=== PATIENT | female | born 1950 | race Caucasian/White ===

== ENCOUNTER → 2020-04-03 14:19 | Outpatient (REF) | payer MEDICARE, SELFPAY | LOC: ANHLAB 14:19 | PROVIDERS: Visit Provider Nurse Practitioner | DX: D49.2 Neoplasm of unspecified behavior of bone, soft tissue, and skin (principal) | CPT/HCPCS: 88305 ==

== ENCOUNTER → 2020-05-17 13:10 | Outpatient (REF) | payer MEDICARE, SELFPAY | LOC: ANHLAB 13:10 | PROVIDERS: Visit Provider Nurse Practitioner | DX: L57.0 Actinic keratosis (principal) | CPT/HCPCS: 88305 ==

== ENCOUNTER 2021-10-31 12:26 | Outpatient (CLI) | payer MEDICARE, SELFPAY ==
--- NOTE | ~2021-10-31 | XR_ITS ---
XR hand BI arthritis min 3V DATE: 10/31/2021 13:19 INDICATION: Osteoarthritis TECHNIQUE: 4 views of each hand COMPARISON: None FINDINGS: No fracture or dislocation, periosteal reaction or bone destruction, erosive change or ely drocalcinosis. IMPRESSION: No significant abnormality Reviewed, dictated and finalized at location B. ISION DEVICES INSPECTOR/TESTER IMPRESSION: No significant abnormality
--- NOTE | ~2021-10-31 | XR_ITS ---
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 AP and lateral views of each hip. COMPARISON: None FINDINGS: Osteopenia. No pelvic fracture or bone destruction. The pubic symphysis and sacroiliac join ts are intact. No fracture or dislocation, avascular necrosis or bone destruction of either hip is ev ident. IMPRESSION: Osteopenia Left-sided battery pack with leads extending toward thoracic spinal canal Postoperative change from surgical fusion of lumbar spine Moderately severe degenerative disc disease at L4-5, L5-S1 Reviewed, dictated and finalized at location B. [employer] C[employer]TER
--- NOTE | ~2021-10-31 | XR_ITS ---
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 Battery pack o verlying left sacroiliac area with leads extending up into the thoracic spinal canal. There is 1.6 cm grade 2 spondylolisthesis at L4-L5. There is severe degenerative disc disease at L1-2, moderate to moderately severe degenerative disc di sease at L4-5 and L5-S1. Extensive abdominal aortic calcification without aneurysm. Status post cholecystectomy. IMPRESSION: Posterior spinal fusion from L2 to L4 Severe degenerative disease at L1-2. Moderate to moderately severe degenerative disc disease at L4-5 and L5-S1 Grade 2 anterolisthesis at L4-5 Reviewed, dictated and finalized at location B. Y ROLLER
--- NOTE | ~2021-10-31 | XR_ITS ---
XR foot LT standing 2V DATE: 10/31/2021 13:19 INDICATION: Osteoarthritis TECHNIQUE: AP and lateral views COMPARISON: None FINDINGS: There is very prominent plantar and posterior calcaneal enthesopathy without erosive change or periostitis. There is enthesopathy of the base of the fifth metatarsal bone. There is mild osteoarthritis at the first metatarsophalangeal joint. No fracture, dislocation, periosteal reaction or bone destruction is detected. IMPRESSION: Prominent plantar and posterior calcaneal enthesopathy Mild osteoarthritic change Reviewed, dictated and finalized at location B. [employer]
--- NOTE | ~2021-10-31 | XR_ITS ---
XR foot RT standing 2V DATE: 10/31/2021 13:19 INDICATION: Right foot pain TECHNIQUE: AP and lateral views COMPARISON: None FINDINGS: Prominent plantar and posterior calcaneal enthesopathy. There is calcification in the dista l Achilles tendon lower leg and foot. There is posterior tibial artery and first and second metatarsa l artery calcification calcification as well as some digital artery calcifications, suggesting diabet es. There is moderate osteoarthritic change at the first metatarsophalangeal joint. No fracture or dislocation, periosteal reaction or bone destruction. IMPRESSION: Prominent plantar and posterior calcaneal enthesopathy Prominent Achilles tendon calcifications Moderate osteoarthritis at first metatarsophalangeal joint Extensive arterial calcifications including metatarsal and digital arteries, suggesting diabetes Reviewed, dictated and finalized at location B. NFIELD REDEVELOPMENT SITE MANAGER IMPRESSION: Prominent plantar and posterior calcaneal enthesopathy Prominent Achilles tendon calcifications Moderate osteoarthritis at first metatarsophalangeal joint Extensive arterial calcifications including metatarsal and digital arteries, de la cruz ggesting diabetes
[2021-10-31 13:43] LABS: Hematocrit 36.9 % (37.0-47.0); Hemoglobin 12.6 g/dL (12.0-15.0); Mean Corpuscular HGB Conc 34.1 g/dl (32-36); Mean Corpuscular Volume 90.9 fl (80-100); Mean Platelet Volume 11.3 fl (7.4-10.4); Platelet Count Result 254 k/mm3 (150-375); Red Blood Count 4.06 M/mm3 (4.2-5.4); Red Cell Distribution Width 13.5 % (11.5-14.5); White Blood Count 11.2 K/mm3 (4.5-10.0)
[2021-10-31 14:04] LABS: Rheumatoid Factor < 8.6 IU/ML (<12)
[2021-10-31 14:05] LABS: Alanine Aminotransferase 21 U/L (4-35); Albumin Level 4.6 g/dL (3.5-5.1); Alkaline Phosphatase 29 U/L (38-126); Anion Gap 9 mmol/L (8-16); Aspartate Amino Transferase 27 U/L (14-36); Bilirubin,Total 0.5 mg/dL (0.2-1.3); Blood Urea Nitrogen 24 mg/dL (7-17); CRP 0.5 mg/dL (<1.0); Calcium 9.8 mg/dL (8.4-10.2); Carbon Dioxide 25 mmol/L (22-30); Chloride 104 mmol/L (98-107); Estimated Glomerular Filt Rate > 60; Glucose 106 mg/dL (65-110); Potassium 4.7 mmol/L (3.4-5.0); Sodium 138 mmol/L (137-145); Uric Acid 5.9 mg/dL (2.5-7.5)
[2021-10-31 14:50] LABS: Erythrocyte Sedimentation Rate 30 mm/hr (0-20)
[2021-11-03 20:37] LABS: SM Antibody <1.0; SM/RNP Antibody <1.0; SS-A <1.0; SS-B <1.0
[2021-11-05 14:41] LABS: Anti Cyclic Citrullinated Pept <16 Units (<20)
== END 2021-10-31 12:27 | disposition home or self-care (01) ==
PROVIDERS: Visit Provider Internal Medicine
DX: M47.816 Spondylosis without myelopathy or radiculopathy, lumbar region (principal); D49.2 Neoplasm of unspecified behavior of bone, soft tissue, and skin; M19.90 Unspecified osteoarthritis, unspecified site; N81.9 Female genital prolapse, unspecified; M06.9 Rheumatoid arthritis, unspecified; M10.9 Gout, unspecified; M77.32 Calcaneal spur, left foot; M77.31 Calcaneal spur, right foot; M65.871 Other synovitis and tenosynovitis, right ankle and foot; M19.072 Primary osteoarthritis, left ankle and foot; M19.071 Primary osteoarthritis, right ankle and foot; I70.201 Unspecified atherosclerosis of native arteries of extremities, right leg; M85.89 Other specified disorders of bone density and structure, multiple sites; Z98.1 Arthrodesis status; M51.36 Other intervertebral disc degeneration, lumbar region; M43.16 Spondylolisthesis, lumbar region
CPT/HCPCS: 36415; 72110; 73130; 73521; 73620; 80053; 84550; 85027; 85652; 86038; 86140; 86200; 86225; 86235; 86430

== ENCOUNTER 2022-09-08 20:48 | Emergency (ER) | payer MEDICARE, SELFPAY ==
[2022-09-08 20:55] VITALS: BP 155/85; PULSE 99; RESP 15; TEMP 36.7; O2SAT 95
[2022-09-08 21:50] VITALS: BP 170/90; PULSE 98; RESP 14; O2SAT 98
--- NOTE | 2022-09-08 22:30 | ED.EPISTAXIS ---
HPI - Epistaxis General Chief complaint: Epistaxis Stated complaint: bloody nose off and on all day Time Seen by Provider: 09/08/22 22:08 History of Present Illness HPI Narrative: This is a 71-year-old female with past medical history of diabetes, hypertension, hypothyroidism, presents emergency department with epistaxis. She states over the past day she has had intermittent nosebleeds, the worst lasting approximately 1 hour. She complains of some headache but no lightheadedness or difficulty breathing. Related Data Home Medications Medication Instructions Recorded Confirmed albuterol sulfate 90 mcg/actuation 2 puff inhalation QID PRN 09/09/19 05/12/22 aerosol inhaler Shortness Of Breath diphenhydramine 25 1 tablet PO HS 09/09/19 05/12/22 mg-acetaminophen 500 mg tablet (Tylenol PM Extra Strength) metformin 1,000 mg tablet 1,000 mg PO BID 09/09/19 05/12/22 metoprolol tartrate 50 mg tablet 25 mg PO BID 09/09/19 05/12/22 (Lopressor) multivit with minerals-iron 18 1 tablet PO DAILY 09/09/19 05/12/22 mg-folic ac 400 mcg-vit K 25 mcg tablet (Adults Multivitamin) oxybutynin chloride 5 mg tablet 5 mg PO BID 09/09/19 05/12/22 allopurinol 100 mg tablet 100 mg PO DAILY 04/03/20 05/12/22 aspirin 81 mg tablet 81 mg PO DAILY 04/03/20 05/12/22 atenolol 50 mg tablet 50 mg PO DAILY 04/03/20 05/12/22 ezetimibe 10 mg tablet 5 mg PO DAILY 04/03/20 05/12/22 fluticasone propionate 44 1 inhalation inhalation ONCE 04/03/20 05/12/22 mcg/actuation HFA aerosol inhaler (Flovent HFA) glimepiride 4 mg tablet 4 mg PO BID 04/03/20 05/12/22 levothyroxine 50 mcg tablet 50 mcg PO BID 04/03/20 05/12/22 lisinopril 20 1 tablet PO BID 04/03/20 05/12/22 mg-hydrochlorothiazide 12.5 mg tablet omega-3 1,050 or-but-[id number]-[id number]-fish 2 cap PO BID 04/03/20 05/12/22 oil 1,200 mg capsule Allergies Allergy/AdvReac Type Severity Reaction Status Date / Time nalbuphine [From Nubain] Allergy Unknown Verified 09/08/22 21:50 Review of Systems Review of Systems: CONSTITUTIONAL: Denies fever, chills, or sweats. ENT: Epistaxis denies rhinorrhea, congestion, sore throat, or otalgia. CARDIOVASCULAR: Denies chest pain, palpitations, or edema. RESPIRATORY: Denies cough or dyspnea. GASTROINTESTINAL: Denies abdominal pain, nausea, vomiting, or diarrhea. GENITOURINARY: Denies dysuria or hematuria. NEUROLOGIC: Headache denies numbness, dizziness, or weakness. PSYCHIATRIC: Denies anxiety or depression. [facility] Past Medical History Medical History Bilateral hand pain Carpal tunnel syndrome 1996 Deep vein thrombophlebitis of leg Degenerative joint disease (DJD) of lumbar spine Diabetes Gout Hyperlipidemia Hypertension Tarsal tunnel syndrome Surgical History Surgical History H/O: hysterectomy 06/1989 History of back surgery Aug 2005 History of cholecystectomy April 2008 History of total right knee replacement Hx of cardiac cath April 1993 Social History Social History Smoking status: Former smoker Alcohol intake: current Substance use: never Gender identity (if verbalized by the patient): Female Exam Narrative: GENERAL: Well-developed, well-nourished, and in no acute distress. HEAD: Normocephalic, atraumatic. EYES: PERRLA and EOMI. ENT: No significant bleeding noted, mild irritation and small amount of bleeding noted in the right anterior nares; no rhinorrhea. Mucous membranes moist. Oropharynx without tonsillar hypertrophy exudate or other lesions. No noted posterior pharygeal bleeding CHEST: Clear to auscultation. No respiratory distress. No wheezes rales or rhonchi HEART: Regular rate and rhythm. No murmur heard. Normal peripheral pulses. ABDOMEN: Soft, nontender, nondistended, normal active bowel sounds. EXTREMITIES: Normal range of motion. No edema.
[2022-09-08] MEDS: OXYMETAZOLINE HCL 0.05% NAS 15 ML BTL (*BKC) 1 SPRAY NASAL (22:36)
[2022-09-08 23:40] VITALS: BP 148/81; PULSE 89; RESP 19; TEMP 36.8; O2SAT 94
== END 2022-09-09 00:24 | disposition home or self-care (01) ==
PROVIDERS: Emergency Provider Preventive Medicine Aerospace Medicine
DX: R04.0 Epistaxis (principal); E11.9 Type 2 diabetes mellitus without complications; I10 Essential (primary) hypertension; E03.9 Hypothyroidism, unspecified; M47.816 Spondylosis without myelopathy or radiculopathy, lumbar region; E78.5 Hyperlipidemia, unspecified; M10.9 Gout, unspecified; Z90.710 Acquired absence of both cervix and uterus; Z86.718 Personal history of other venous thrombosis and embolism; Z96.651 Presence of right artificial knee joint; Z87.891 Personal history of nicotine dependence; Z79.82 Long term (current) use of aspirin; Z79.84 Long term (current) use of oral hypoglycemic drugs
CPT/HCPCS: 99283; A9270